=== PATIENT | female | born 1945 | race Caucasian/White ===

== ENCOUNTER 2022-05-16 16:43 | Emergency (ER) | payer OTHER ==
[~2022-05-16] VITALS: Ht 154.9 cm; Wt 59.0 kg
[2022-05-16 16:58] VITALS: BP_SYST 153
[2022-05-16] MEDS ORDERED: ACETAMINOPHEN 500 MG TABLET PO ONE (17:30)
[2022-05-16] MEDS ORDERED: LIDOCAINE PATCH 5% 1 EA TP ONE (17:30)
--- NOTE | 2022-05-16 17:40 | NUR ---
DR YING IN [facility] FOR EXAM
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
--- NOTE | 2022-05-16 17:59 | NUR ---
MEDICATED ORDERED, WILL CONT TO MONITOR.
[2022-05-16] MEDS ORDERED: HYDR-3917 PO (18:43)
[2022-05-16] MEDS ORDERED: LIDO1ADH77 TD (18:43)
--- NOTE | 2022-05-16 19:01 | NUR ---
Patient given written and verbal discharge instructions and verbalizes understanding. ER MD discussed with patient the results and treatment provided. Patient in stable condition. ID arm band removed. Rx of NORCO, LIDOCAINE given. Patient educated on pain management and to follow up with PMD. Pain Scale . Opportunity for questions provided and answered. Medication side effect fact sheet provided.
[2022-05-16 19:02] VITALS: BP_SYST 132
== END 2022-05-16 19:02 | disposition home or self-care (01) ==
LOC: SED 16:43
DX: S20.211A Contusion of right front wall of thorax, initial encounter (principal); Z79.899 Other long term (current) drug therapy; V49.40XA Driver injured in collision with unspecified motor vehicles in traffic accident, initial encounter; Y93.89 Activity, other specified; Y92.89 Other specified places as the place of occurrence of the external cause; Y99.8 Other external cause status
CPT/HCPCS: 71045; 71100; 99283